=== PATIENT | female | born 1995 | race Native Hawaiian/Other Pacific Islander ===

== ENCOUNTER 2019-06-22 17:33 | Emergency (ER) | payer OTHER ==
[~2019-06-22] VITALS: Ht 167.6 cm; Wt 88.5 kg
[2019-06-22 17:33] VITALS: TEMP 97.8
[2019-06-22 18:50] VITALS: BP 122/73
== END 2019-06-22 18:50 | disposition home or self-care (01) ==
LOC: ED 17:33
DX: T39.311A Poisoning by propionic acid derivatives, accidental (unintentional), initial encounter (principal); R06.02 Shortness of breath; Y92.89 Other specified places as the place of occurrence of the external cause
CPT/HCPCS: 36415; 94664; 96360; 96375; 99284; J2930

== ENCOUNTER → 2019-08-23 18:32 | Outpatient (CLI) | payer OTHER | END | disposition home or self-care (01) | LOC: AMB 18:32 | DX: Z04.1 Encounter for examination and observation following transport accident (principal) ==